=== PATIENT | female | born 1945 | race Caucasian/White ===

== ENCOUNTER → 2017-02-02 | Outpatient (CLI) | payer OTHER | LOC: FIMAGING 12:40 | PROVIDERS: ATTEND Internal Medicine Hematology & Oncology | DX: Z12.31 Encounter for screening mammogram for malignant neoplasm of breast (principal) | CPT/HCPCS: G0202 ==

== ENCOUNTER → 2018-01-03 | Outpatient (CLI) | payer OTHER | LOC: FLAB 13:43 | PROVIDERS: ATTEND Internal Medicine Pulmonary Disease | DX: J98.4 Other disorders of lung (principal); M51.34 Other intervertebral disc degeneration, thoracic region ==

== ENCOUNTER → 2018-02-13 | Outpatient (CLI) | payer OTHER | LOC: FIMAGING 12:14 | PROVIDERS: ATTEND Internal Medicine Hematology & Oncology | DX: Z12.31 Encounter for screening mammogram for malignant neoplasm of breast (principal); Z85.3 Personal history of malignant neoplasm of breast ==

== ENCOUNTER → 2018-03-22 | Outpatient (CLI) | payer OTHER | LOC: CIMAGING 11:36 | PROVIDERS: ATTEND Orthopaedic Surgery | DX: M16.12 Unilateral primary osteoarthritis, left hip (principal); D25.9 Leiomyoma of uterus, unspecified | CPT/HCPCS: 73700-PO ==

== ENCOUNTER → 2019-02-20 | Outpatient (CLI) | payer OTHER | LOC: FIMAGING 11:51 ==